=== PATIENT | male | born 1970 ===

== ENCOUNTER → 2018-06-17 21:18 | Outpatient (REF) | payer OTHER, SELFPAY ==
[2018-06-17 21:36] LABS: Add Manual Diff / Slide Review NO; Basophils Percent Auto 1.2 % (0-2); Eosinophils Percent Auto 0.8 % (2-4); Hematocrit 48.1 % (41-53); Hemoglobin 16.1 g/dL (13.5-17.5); Lymphocytes Percent Auto 37.4 % (25-40); Mean Corpuscular HGB Conc 33.4 % (30-36); Mean Corpuscular Hemoglobin 32.3 PG (26-34); Mean Corpuscular Volume 96.7 fL (80-100); Monocytes Percent Auto 10.4 % (3-14); Neutrophils Absolute Auto 2100 /uL (3000-5900); Neutrophils Percent Auto 50.2 % (50-75); Platelet Count 171 X10^3/uL (150-400); Red Blood Cell Count 4.98 X10^6/uL (4.5-5.9); Red Cell Distribution Width 14.2 % (11.6-14.8); White Blood Cell Count 4.1 X10^3/uL (4.5-11.0)
[2018-06-17 22:15] LABS: Alanine Aminotransferase 19 IU/L (21-72); Albumin 4.2 g/dL (3.5-5.0); Albumin Globulin Ratio 1.4 (1.0-2.8); Alkaline Phosphatase 83 U/L (38-126); Aspartate Aminotransferase 18 IU/L (17-59); BUN Creatinine Ratio 12.5 (6-22); Bilirubin Total 0.5 mg/dL (0.2-1.3); Blood Urea Nitrogen 15 mg/dL (9-20); Calcium 9.2 mg/dL (8.4-10.2); Carbon Dioxide 29 mmol/L (22-32); Chloride 104 mmol/L (98-107); Cholesterol 144 mg/dL (140-199); Estimated Glomerular Filt Rate > 60.0 mL/min (>60); Globulin 2.9 g/dL (1.7-4.1); Glucose 95 mg/dL (70-100); HDL Cholesterol 46 mg/dL (40-60); HEMOLYSIS < 15 (0-50); LDL Cholesterol Calculated 90 mg/dL (<100); Potassium 4.6 mmol/L (3.4-5.1); Sodium 144 mmol/L (137-145); Total Protein 7.1 g/dL (6.3-8.2); Triglycerides 39 mg/dL (35-150)
[2018-06-17 22:32] LABS: Free T4, Direct Thyroxine 0.94 ng/dL (0.78-2.19)
[2018-06-17 22:46] LABS: Thyroid Stimulating Hormone 1.65 uIU/mL (0.47-4.68)
[2018-06-21 14:03] LABS: PSA Total 0.29 ng/mL (< 4.01)
[2018-06-21 15:26] LABS: Estradiol 49 pg/mL (< 40)
[2018-06-22 10:24] LABS: Testosterone Free 79.5 pg/mL (35.0-155.0); Testosterone Total 382 ng/dL (250-1100)
== END ==
LOC: LAB 21:18
PROVIDERS: Visit Provider Naturopath
DX: Z00.00 Encounter for general adult medical examination without abnormal findings (principal); Z13.89 Encounter for screening for other disorder; E29.1 Testicular hypofunction; G47.33 Obstructive sleep apnea (adult) (pediatric)
CPT/HCPCS: 80053; 80061; 82670; 82728; 84153; 84154; 84402; 84403; 84439; 84443; 85025